=== PATIENT | male | born 1980 | race Caucasian/White ===

== ENCOUNTER 2017-01-29 08:00 | Outpatient (CLI) | payer OTHER ==
[2017-01-29 19:21] LABS: BASOPHILS # (AUTO) 0.1 10^3/uL (0.0-0.1); BASOPHILS % (AUTO) 1.5 %; EOSINOPHILS # (AUTO) 0.1 10^3/uL (0.0-0.7); EOSINOPHILS % (AUTO) 2.3 %; HCT - HEMATOCRIT 47.5 % (42.0-52.0); HGB - HEMOGLOBIN 16.2 g/dL (14.0-18.0); MEAN CORPUSCULAR HEMOGLOBIN 30.7 pg (27.0-31.0); MEAN CORPUSCULAR HGB CONC 34.1 g/dL (32.0-36.0); MEAN CORPUSCULAR VOLUME 89.9 fL (80.0-94.0); MONOCYTES # (AUTO) 0.4 10^3/uL (0.0-1.0); MONOCYTES % (AUTO) 6.8 %; NEUTROPHILS # (AUTO) 3.6 10^3/uL (1.5-6.6); NEUTROPHILS % (AUTO) 57.4 %; NUCLEATED RED BLOOD CELLS AUTO 0.1 /100WBC; RED BLOOD COUNT 5.28 10^6/uL (4.70-6.10); RED CELL DISTRIBUTION WIDTH 12.6 % (12.0-15.0); UNCORRECTED WHITE BLOOD COUNT 6.3 x10^3/uL; WHITE BLOOD COUNT 6.3 x10^3/uL (4.8-10.8)
[2017-01-29 19:49] LABS: ALBUMIN/GLOBULIN RATIO 1.9 (1.0-2.2); BILIRUBIN,TOTAL 0.9 mg/dL (0.2-1.0); BUN - BLOOD UREA NITROGEN 11 mg/dL (6-20); CALCIUM 9.4 mg/dL (8.5-10.3); CARBON DIOXIDE - CO2 26 mmol/L (21-32); CHLORIDE 103 mmol/L (101-111); CREATININE 0.7 mg/dL (0.6-1.2); GFR - MDRD 126 (>89); GLUCOSE 91 mg/dL (70-100); POTASSIUM 4.4 mmol/L (3.5-5.0); SODIUM 135 mmol/L (135-145); TOTAL PROTEIN 7.3 g/dL (6.7-8.2)
== END 2017-01-29 08:01 | disposition home or self-care (01) ==
LOC: LAB.WCP 08:00
PROVIDERS: ATTEND Family Medicine
DX: R50.9 Fever, unspecified (principal); R00.2 Palpitations; R53.83 Other fatigue
CPT/HCPCS: 36415; 80050; 85651; 86140; 87086

== ENCOUNTER 2017-04-27 11:55 | Outpatient (CLI) | payer OTHER | END 2017-04-27 11:56 | disposition home or self-care (01) | LOC: LAB.WCP 11:55 | PROVIDERS: ATTEND Physician Assistant Medical | DX: R53.83 Other fatigue (principal) | CPT/HCPCS: 36415; 81599; 84402; 84403 ==

== ENCOUNTER 2017-06-19 13:39 | Outpatient (CLI) | payer OTHER ==
[2017-06-19] MEDS ORDERED: IOPAMIDOL-300 100 ML VIAL ONE (14:08)
[2017-06-19 14:15] LABS: CALCIUM 9.3 mg/dL (8.5-10.3); CREATININE 0.8 mg/dL (0.6-1.2)
[2017-06-19] MEDS ORDERED: IOPAMIDOL-300 100 ML VIAL IVP ONE (14:41)
--- NOTE | 2017-06-20 05:50 | CT Report ---
EXAM: CT CHEST EXAM DATE: 06/19/2017 02:30 PM. CLINICAL HISTORY: Chronic cough for 2 months. COMPARISONS: 11/26/2014. TECHNIQUE: Routine helical CT imaging was performed through the chest. IV contrast: 80 mL Isovue-300. Reconstructions: Coronal and sagittal. In accordance with CT protocol optimization, one or more of the following dose reduction techniques w ere utilized for this exam: automated exposure control, adjustment of mA and/or KV based on patient s ize, or use of iterative reconstructive technique. FINDINGS: Lungs and Pleura: No significant consolidation. Central Airways: Visualized central airways are without suspicious filling defects. Chest Wall: No significant abnormality. Thyroid: No significant abnormality. Mediastinum: No significant abnormality. Heart: Normal in size. No significant pericardial effusion. Aorta: Normal caliber. Upper Abdomen: There is a 2.4 cm cyst arising from the anterior portion of the left mid kidney. Addit ional small posterior lateral left mid kidney cyst also suspected. Bones: No suspicious bony lesions evident. IMPRESSION: Normal appearance of the chest. There are 2 left renal cysts. [facility] Referring Provider Line: [phone] SITE ID: [id number]
== END 2017-06-19 13:40 | disposition home or self-care (01) ==
LOC: DI 13:39
PROVIDERS: ATTEND Physician Assistant Medical
DX: R05 Cough (principal); I10 Essential (primary) hypertension
CPT/HCPCS: 36415; 71260; 80048; Q9967

== ENCOUNTER 2017-12-14 10:10 | Outpatient (CLI) | payer OTHER ==
[2017-12-14 13:54] LABS: BASOPHILS % (AUTO) 0.6 %; EOSINOPHILS # (AUTO) 0.1 10^3/uL (0.0-0.7); EOSINOPHILS % (AUTO) 2.1 %; HGB - HEMOGLOBIN 15.9 g/dL (14.0-18.0); LYMPHOCYTES % (AUTO) 29.2 %; MEAN CORPUSCULAR HEMOGLOBIN 31.2 pg (27.0-31.0); MEAN CORPUSCULAR HGB CONC 35.3 g/dL (32.0-36.0); MEAN CORPUSCULAR VOLUME 88.4 fL (80.0-94.0); MEAN PLATELET VOLUME 7.6 fL (7.4-11.4); MONOCYTES # (AUTO) 0.5 10^3/uL (0.0-1.0); MONOCYTES % (AUTO) 7.9 %; NEUTROPHILS % (AUTO) 60.2 %; PLT - PLATELET COUNT 250 10^3/uL (130-450); RED BLOOD COUNT 5.09 10^6/uL (4.70-6.10); RED CELL DISTRIBUTION WIDTH 13.6 % (12.0-15.0); WHITE BLOOD COUNT 6.7 x10^3/uL (4.8-10.8)
[2017-12-14 14:07] LABS: INR 2.1 (0.8-1.2); PT - PROTHROMBIN TIME 23.1 secs (9.9-12.6)
[2017-12-14 14:28] LABS: ALBUMIN 4.2 g/dL (3.2-5.5); ALBUMIN/GLOBULIN RATIO 1.8 (1.0-2.2); BILIRUBIN,TOTAL 0.8 mg/dL (0.2-1.0); CREATININE 0.8 mg/dL (0.6-1.2); TOTAL PROTEIN 6.6 g/dL (6.7-8.2)
== END 2017-12-14 10:11 | disposition home or self-care (01) ==
LOC: LAB.WCP 10:10
PROVIDERS: ATTEND Family Medicine
DX: R10.9 Unspecified abdominal pain (principal); D66 Hereditary factor VIII deficiency; Z86.718 Personal history of other venous thrombosis and embolism
CPT/HCPCS: 36415; 80053; 85025; 85610

== ENCOUNTER 2017-12-16 08:55 | Outpatient (CLI) | payer OTHER ==
--- NOTE | 2017-12-16 11:56 | Ultrasound Report ---
Procedure Date: 12/16/2017 Accession Number: [id number] / [id number] Procedure: US - Abdomen Limited CPT Code: FULL RESULT: EXAM: ABDOMEN ULTRASOUND LIMITED, RUQ EXAM DATE: 12/16/2017 10:55 AM. CLINICAL HISTORY: Umbilical HERNIA. COMPARISON: None. TECHNIQUE: Real-time scanning was performed with static images obtained. FINDINGS: Umbilical hernia measuring 0.7 x 0.6 cm. This appears to be fat containing. No definite bowel loops identified. IMPRESSION: Umbilical hernia 0.7 x 0.6 cm [facility]
== END 2017-12-16 08:56 | disposition home or self-care (01) ==
LOC: DI 08:55
PROVIDERS: ATTEND Family Medicine
DX: K42.9 Umbilical hernia without obstruction or gangrene (principal)
CPT/HCPCS: 76705

== ENCOUNTER 2017-12-20 07:42 | Day surgery (SDC) | payer OTHER ==
[2017-12-20] MEDS ORDERED: ceFAZolin 2 GM/50 ML 2 GM/50 ML BAG IV ONE (08:17)
[2017-12-20] MEDS ORDERED: LACTATED RINGERS 1,000 ML IV ONE ×2 (08:30→09:45)
--- NOTE | 2017-12-20 09:01 | ANESTHESIA ---
Pre-Anesthesia VS, & Labs - Diagnosis umbilical hernia - Procedure umbilical hernia repair Vital Signs: Temp Pulse Resp BP Pulse Ox 36.5 C 18 140/96 H 98 12/20/17 08:30 12/20/17 08:30 12/20/17 08:30 12/20/17 08:30 Height 5 ft 7 in Weight (kg) 100 kg Body Mass Index 31.7 - NPO >8 hours - Lab Results Lab results reviewed: Yes Home Medications and Allergies Home Medications: Ambulatory Orders Medication Instructions Recorded Confirmed Warfarin Sodium [Coumadin] 11 mg PO .TUTHSAT 09/20/15 12/17/17 Lamotrigine [Lamotrigine ER] 100 mg PO TID 12/17/17 12/17/17 Omeprazole [PriLOSEC] 20 mg PO DAILY 12/17/17 12/17/17 Propranolol HCl 10 mg PO Q8HR 12/17/17 12/17/17 Quetiapine Fumarate 100 mg PO TID 12/17/17 12/17/17 Valsartan 80 mg PO DAILY 12/17/17 12/17/17 Warfarin Sodium 10 mg PO .MWFSUN 12/17/17 12/17/17 Allergies/Adverse Reactions: Allergies Allergy/AdvReac Type Severity Reaction Status Date / Time Penicillins Allergy Unknown Verified 12/17/17 13:49 hydrocodone AdvReac Itching Verified 12/17/17 13:49 Anes History & Medical History - Anesthetic History Anesthesia Complications: reports: No previous complications Family history of Anesthesia Complications: Denies Family history of Malignant Hyperthermia: Denies - Medical History Cardiovascular: reports: Hypertension, Deep vein thrombosis, Pulmonary embolism Musculoskeletal: reports: Chronic back pain Blood Disorders: reports: None Smoking Status: Current every day smoker - Surgical History General: EGD Exam General: Alert, Oriented x3, Cooperative, No acute distress, Mild distress Dental: Other (caps) Mouth Openin Fingerbreadth Neck Mobility: Normal Mallampati classification: II Thyromental Distance: greater than 6 cm Respiratory: Lungs clear, Normal breath sounds, No respiratory distress, No accessory muscle use Cardiovascular: Regular rate, Normal S1, Normal S2, No murmurs Mental/Cognitive Status: Alert/Oriented X3, Normal for patient Cognitive Status: Within normal limits Plan Anesthesia Type: MAC Consent for Procedure(s) Verified and Reviewed: Yes Code Status: Attempt Resuscitation ASA classification: 2-Mild systemic disease Is this case an emergency?: No
[2017-12-20 09:07] LABS: INR 0.9 (0.8-1.2); PT - PROTHROMBIN TIME 10.3 secs (9.9-12.6)
[2017-12-20] MEDS ORDERED: BUPIVACAINE 0.5% PF 30 ML VIAL ONE (10:07)
[2017-12-20] MEDS ORDERED: LIDOCAINE MPF 1%-EPI 1:200000 30 ML VIAL ONE (10:07)
[2017-12-20] MEDS ORDERED: SODIUM CHLORIDE FLUSH 0.9% 10 ML SYRINGE ONE (10:08)
[2017-12-20] MEDS ORDERED: ceFAZolin 1 GM VIAL ONE (10:09)
[2017-12-20] MEDS ORDERED: BUPIVACAINE 0.5% PF 30 ML VIAL INFIL ONE ×2 (11:25)
[2017-12-20] MEDS ORDERED: LIDOCAINE 1%-EPI 1:100000 20 ML MDV SUBQ ONE ×2 (11:26)
[2017-12-20] MEDS ORDERED: fentaNYL 100 MCG/2 ML VIAL IVP ONE (12:00)
[2017-12-20] MEDS ORDERED: KETAMINE 500 MG/10 ML VIAL IVP ONE (12:00)
[2017-12-20] MEDS ORDERED: MIDAZOLAM 2 MG/2 ML VIAL IVP ONE (12:00)
[2017-12-20] MEDS ORDERED: PROPOFOL 200 MG/20 ML VIAL IVP ONE (12:00)
[2017-12-20] MEDS ORDERED: KETOROLAC 30 MG/ML VIAL IVP ONE (12:00)
[2017-12-20] MEDS ORDERED: oxyCODONE 5 MG TABLET ONE (12:32)
--- NOTE | 2017-12-20 12:34 | OPERATIVE REPORT ---
DATE OF SERVICE: 12/20/2017 Physician: Warren Sethi MD PREOPERATIVE DIAGNOSIS: Symptomatic incarcerated umbilical hernia. POSTOPERATIVE DIAGNOSIS: Symptomatic incarcerated umbilical hernia. PROCEDURE PERFORMED: Open repair of symptomatic incarcerated umbilical hernia. ANESTHESIA: Local plus monitored anesthesia care by Raysa Jose CRNA. SURGEON: Warren Sethi MD. ESTIMATED BLOOD LOSS: Minimal. COMPLICATIONS: None. FINDINGS: A less than 1 cm diameter umbilical fascial defect was present with preperitoneal fat inca rcerated within the hernia sac. There was no evidence of strangulation. INDICATIONS: The patient is a 37-year-old gentleman with a recent onset of an exquisitely painful, t dolores umbilical bulge. Examination revealed a small but tender irreducible umbilical mass. Evaluati on with ultrasound revealed a small fat-containing incarcerated umbilical hernia. He was advised to undergo repair. TECHNIQUE: After informed consent, the patient was taken to the operating room where he was sedated and monitored. Preoperative preparation included application of sequential calf compression boots, a dministration of 2 grams cefazolin intravenously within an hour of the incision. His periumbilical r egion was clipped and prepared with iodoform solution, following which a periumbilical block was inst ituted using a 50:50 combination of 1% lidocaine plain and 0.5% Marcaine with epinephrine. A total o f 35 mL of the mixture was used. The periumbilical region was re-prepared with ChloraPrep solution a nd draped in the usual sterile fashion, and a transverse curvilinear infraumbilical incision was made approximately 5 cm in length, and carried down through subcutaneous tissues. Hemostasis achieved wi th electrocautery and 2-0 Vicryl ties. The umbilical dermis was dissected off of the hernia sac, whi ch was then mobilized circumferentially down to the level of the anterior fascia. The hernia sac was entered. The contents were reduced into the peritoneal cavity. Excess hernia sac was amputated and discarded. The fascial edges were mobilized circumferentially and reapproximated transversely with three interrupted 0 Ethibond sutures. After hemostasis was assured, wound closure was accomplished in layers using interrupted 2-0 Vicryl t o reapproximate the umbilical dermis to the anterior fascia, and a similar suture to reapproximate th e deep subcutaneous fat. Continuous 3-0 Vicryl was used to reapproximate the superficial subcutaneou s tissues, and 4-0 Monocryl for subcuticular skin closure, followed by Dermabond. The procedure was terminated and patient transferred out of the operating room in satisfactory condition. Sponge and n eedle counts were correct x2. No drains were used. cc: Janice Chandler PA-C TD: 12/20/2017 12:14
[2017-12-20 13:17] VITALS: BP 144/88
== END 2017-12-20 07:43 | disposition home or self-care (01) ==
LOC: SDS 07:42
PROVIDERS: ATTEND Internal Medicine Gastroenterology
PROC: 0WQF0ZZ Repair Abdominal Wall, Open Approach (ICD-10-PCS; principal; 2017-12-20 09:15)
DX: K42.0 Umbilical hernia with obstruction, without gangrene (principal); D66 Hereditary factor VIII deficiency; I10 Essential (primary) hypertension; E66.9 Obesity, unspecified; F17.210 Nicotine dependence, cigarettes, uncomplicated; Z68.33 Body mass index [BMI] 33.0-33.9, adult; Z86.711 Personal history of pulmonary embolism; Z79.01 Long term (current) use of anticoagulants; Z79.899 Other long term (current) drug therapy; Z86.718 Personal history of other venous thrombosis and embolism
CPT/HCPCS: 49587; 85610; A9270; J0690; J7120

== ENCOUNTER 2018-04-01 15:49 | Outpatient (CLI) | payer OTHER ==
--- NOTE | 2018-04-03 13:50 | MRI Report ---
Reason: LUMBAR RADICULOPATHY, BACK PAIN, THORACIC REGION Procedure Date: 04/01/2018 Accession Number: [id number] / [id number] Procedure: MRI - Thoracic Spine W/O CPT Code: FULL RESULT: EXAM: MRI THORACIC SPINE WITHOUT CONTRAST EXAM DATE: 04/01/2018 04:02 PM. CLINICAL HISTORY: 38-year-old male. LUMBAR RADICULOPATHY, BACK PAIN, THORACIC REGION. COMPARISONS: None. TECHNIQUE: Multiplanar, multisequence T1-weighted and fluid-sensitive sequences of the thoracic spine from C7 to L1 without contrast. Other: None. FINDINGS: Spinal Canal: No signal abnormality in the visualized spinal cord. Alignment: No scoliosis or spondylolisthesis. Bone Marrow: No gross fractures or bone lesion. Mild Modic type I degenerative endplate changes at T8-T9 level with endplate edema. Mild multilevel degenerative changes of the thoracic spine with disk height loss and desiccation, and mild disk bulges at T6-T7, T7-T8, T8-T9, T9-T10, and T10-T11 level. No significant central canal or foraminal narrowing at any thoracic level. Musculature: Normal. No edema or fatty atrophy. Other: The visualized lungs, mediastinum, and abdominal cavity are unremarkable. IMPRESSION: 1. No evidence of acute fracture or malalignment. No cord signal abnormality. 2. Mild Modic type I degenerative endplate changes at T8-T9 level with endplate edema. Modic type I changes may represent the source of pain. 3. Mild multilevel degenerative changes of the thoracic spine with disk height loss and desiccation, and mild disk bulges at T6-T7, T7-T8, T8-T9, T9-T10, and T10-T11 level. No significant central canal or foraminal narrowing at any thoracic level. [facility]
--- NOTE | 2018-04-03 13:54 | MRI Report ---
Reason: LUMBAR RADICULOPATHY, BACK PAIN, THORACIC REGION Procedure Date: 04/01/2018 Accession Number: [id number] / [id number] Procedure: MRI - Lumbar Spine W/O CPT Code: FULL RESULT: EXAM: MRI LUMBAR SPINE WITHOUT CONTRAST EXAM DATE: 04/01/2018 05:12 PM. CLINICAL HISTORY: 38-year-old male. LUMBAR RADICULOPATHY, BACK PAIN, THORACIC REGION. COMPARISON: LUMBAR SPINE 2 VIEW 11/19/2014 3:15 PM. TECHNIQUE: Multiplanar, multisequence T1-weighted and fluid-sensitive sequences of the lumbar spine from T12 to S1 without contrast. Other: None. FINDINGS: Spinal Canal: The conus terminates at L1. The conus medullaris and cauda equina are unremarkable. Alignment: No scoliosis or spondylolisthesis. Bone Marrow: Five [id number] lumbar vertebral bodies are assumed. No gross fractures . 8 T1 and T2 hyperintense lesion within the L3 vertebral body is favored to represent benign hemangioma. No bone marrow replacement. Disk Levels/Facets: T12-L1: Unremarkable. L1-L2: Unremarkable. L2-L3: Unremarkable. L3-L4: Unremarkable. L4-L5: Unremarkable. L5-S1: Unremarkable. Musculature: Normal. No edema or fatty atrophy. Other: T2 hyperintense lesions within the left kidney, nonspecific, and incompletely evaluated, may represent simple cysts The partially visualized retroperitoneum is unremarkable. IMPRESSION: Overall unremarkable MRI of the lumbar spine. No significant central canal or foraminal narrowing at any lumbar level. No evidence of acute fracture or malalignment. No bone marrow edema. No cord signal abnormality. Comment: The following findings are so common in adults without low back pain that while we report their presence, they must be interpreted with caution and in the context of the clinical situation. (Reference Carylk et al, Spine 2001) Prevalence of findings in patients without low back pain: Disk degeneration (any evidence): 92% Disk desiccation/T2 signal loss: 83% Disk height loss: 56% Disk bulge: 64% Disk protrusion: 32% Annular tear/high intensity zone: 38% [facility]
== END 2018-04-01 15:50 | disposition home or self-care (01) ==
LOC: DI 15:49
PROVIDERS: ATTEND Physician Assistant Medical
DX: M51.34 Other intervertebral disc degeneration, thoracic region (principal); M54.16 Radiculopathy, lumbar region
CPT/HCPCS: 72146; 72148

== ENCOUNTER 2018-05-17 10:29 | Outpatient (CLI) | payer OTHER | END 2018-05-17 10:30 | disposition home or self-care (01) | LOC: SC 10:29 | PROVIDERS: ATTEND Internal Medicine Pulmonary Disease | DX: G47.00 Insomnia, unspecified (principal); R06.83 Snoring; G47.8 Other sleep disorders; F17.210 Nicotine dependence, cigarettes, uncomplicated; E66.9 Obesity, unspecified; Z68.33 Body mass index [BMI] 33.0-33.9, adult | CPT/HCPCS: 99203; 99212 ==

== ENCOUNTER 2019-05-08 09:12 | Outpatient (CLI) | payer OTHER ==
--- NOTE | 2019-05-08 15:02 | Ultrasound Report ---
Reason: ABD PAIN Procedure Date: 05/08/2019 Accession Number: [id number] / [id number] Procedure: US - Abdomen Complete CPT Code: Final Report FULL RESULT: EXAM: ABDOMEN ULTRASOUND. EXAM DATE: 05/08/2019 10:13 AM. CLINICAL HISTORY: Abdominal pain. COMPARISON: 12/16/2017 10:33 AM. CHEST W/ 06/19/2017 2:30 PM. TECHNIQUE: Real-time scanning was performed with static images obtained. FINDINGS: Liver: Diffusely echogenic hepatic parenchyma. No hepatic lesions. No intrahepatic ductal dilatation. The posterior right lobe of the liver not optimally visualized due to hepatic density. Liver is not enlarged, 16 cm. Main portal vein flow: Hepatopetal. Gallbladder: Normal. No stones, wall thickening, or sonographic Guthrie's sign. Biliary System: Common bile duct measures 3-4 mm. No intrahepatic or extrahepatic ductal dilatation. Pancreas: Visualized portion is unremarkable. Kidneys: Right: 10.6 cm longitudinally. Normal. No contour-deforming mass, stones, or hydronephrosis. Left: 11.2 cm longitudinally. Normal echotexture. Mid nonobstructing 1 cm calculus. No hydronephrosis. Medial lower pole cyst again seen measuring 2.7 x 2 x 2.6 cm. Spleen: 10.8 cm. Normal in size and echotexture. Aorta and Inferior Vena Cava: Proximal abdominal aorta not well visualized. Mid and distal abdominal aorta are visualized and normal in caliber. Visualized IVC is unremarkable. Other: No ascites. IMPRESSION: 1. Diffuse hepatic steatosis. No hepatic lesions. 2. Normal gallbladder. No biliary ductal dilatation. 3. Left renal 2.7 cm cyst. Nonobstructing left renal calculus. [facility]
== END 2019-05-08 09:13 | disposition home or self-care (01) ==
LOC: DI 09:12
PROVIDERS: ATTEND Physician Assistant
DX: K76.0 Fatty (change of) liver, not elsewhere classified (principal); N20.0 Calculus of kidney; N28.1 Cyst of kidney, acquired
CPT/HCPCS: 76700